=== PATIENT | female | born 1970 | race Caucasian/White ===

== ENCOUNTER 2024-06-27 00:59 | Emergency (ER) | payer BC, SELFPAY ==
[2024-06-27 00:55] VITALS: BP 152/84; PULSE 106; RESP 16; TEMP 36.7; O2SAT 99
--- NOTE | 2024-06-27 01:01 | ED_ITS ---
HPI - Psych General Chief Complaint: Psychiatric Symptoms Stated Complaint: SI STATEMENTS TO PD Time Seen by Provider: 06/27/24 01:00 History of Present Illness HPI Narrative: 54-year-old female presenting to the emergency department via EMS for suicidal ideation statements. Patient was apparently driving erratically to [facility] when she was pulled over by police for routine traffic stop. When she rolled out the window she made suicidal statements to the police officers. EMS called to scene. Family was contacted who states that patient has a history of some psychiatric illness and reportedly previous suicide ideation. Patient does not take any medications and states that she has not seen a doctor in over 25 years. Denies any complaints at this time. She is very tearful in her affect. Denies any alcohol or drugs. In the ambulance Day patient took back her statements of suicidality although documented by PD and EMS patient stated ?I want to kill myself. Denies any homicidality or hallucinations. Related Data Allergies Allergy/AdvReac Type Severity Reaction Status Date / Time morphine Allergy Severe Throat Verified 06/27/24 01:15 swelling, rash Penicillins Allergy Unknown Other Verified 06/27/24 01:15 ULTRAM AND LEVAQUIN Allergy Unknown Other Uncoded 06/27/24 01:15 Review of Systems 2 Review of Systems: As reviewed above [facility] [place] Social History Social History Substance use type: does not use Exam 2 Narrative: GENERAL: Tearful affect, not in any distress, answering questions appropriately x4 HEAD: [Normocephalic, atraumatic.] EYES: [PERRLA and EOMI.] ENT: Nares clear, no rhinorrhea or epistaxis. Mucous membranes moist. NECK: Supple. CHEST: [Clear to auscultation. No respiratory distress.] HEART: [Regular rate and rhythm]. No murmur heard. [Normal peripheral pulses.] ABDOMEN: [Soft, nondistended], [nontender], [No rigidity or guarding] EXTREMITIES: Normal range of motion. [No edema.] SKIN: Warm, dry, no rash. NEURO: [No focal deficits]. Alert and oriented x4 PSYCH: Tearful affect, flat mood. Currently denies suicidal thoughts or ideations. Very pressured and tangential speech, unable to be interrupted. Course Vital Signs Vital signs: Vital Signs Temperature 36.7 C 06/27/24 00:55 Pulse Rate 106 H 06/27/24 00:55 Respiratory Rate 16 06/27/24 00:55 Blood Pressure 152/84 H 06/27/24 00:55 Pulse Oximetry 99 06/27/24 00:55 Oxygen Delivery Room Air 06/27/24 00:55 Temperature 36.7 C 06/27/24 01:22 Pulse Rate 106 H 06/27/24 01:22 Respiratory Rate 16 06/27/24 01:22 Blood Pressure 152/84 H 06/27/24 01:22 Pulse Oximetry 99 06/27/24 01:22 Oxygen Delivery Room Air 06/27/24 00:55 MDM - Psych MDM Narrative Medical decision making narrative: 54-year-old female with reported history of some psychiatric illness and previous suicidal ideation remarks. This collateral formation was reported by family member to PD in EMS. Family member not present for collateral formation at this time and I did not speak with them. Patient presents for suicidal remarks during a traffic stop or she was driving regularly through the town. Denies any drugs or alcohol. She is a tearful affect, not in any distress, she has very pressured speech with tension shell speech and is very difficult to interrupt her to speak myself. Vehemently denies wanting to hurt herself. Normal examination otherwise. Psychiatric workup was ordered this time with clearance laboratory studies, urinalysis, drug screen, COVID swab. Will contact crisis team for evaluation after medically cleared. Laboratory studies show no significant abnormalities. She has a small white count of 12.5, normal hemoglobin, normal platelet count. Electrolytes within normal limits, normal renal function, normal glucose, normal hepatic function. Urine drug screen negative, urinalysis has 2+ leukocytes, white blood cells and bacteria, few squamous cells. Will treat her empirically for urinary infection. Negative test. Negative alcohol level. Patient is currently medically cleared for evaluation by Psychiatry. Patient has been evaluated by Psychiatry and she is stable for discharge home at this time. Not a present danger to herself or others, resources provided upon discharge by the crisis team. Medical Records Attestation: I reviewed the patient's medical records. Lab Data Attestation: I reviewed the patient's lab results. 06/27/24 01:16 06/27/24 01:16 Labs: Lab Results 06/27/24 06/27/24 06/27/24 Range/Units 01:16 01:23 01:55 WBC 12.5 H (4.5-10.0) K/mm3 RBC 4.17 L (4.2-5.4) M/mm3 Hgb 12.3 (12.0-15.0) g/dL Hct 36.0 L (37.0-47.0) % MCV 86.3 (80-100) fl MCH 29.5 (26-34) pg MCHC 34.2 (32-36) g/dl RDW 14.0 (11.5-14.5) % Plt Count 315 (150-375) k/mm3 MPV 9.6 (7.4-10.4) fl Immature Gran % (Auto) 0.3 (0-0.5) % Neut % (Auto) 54.8 (45.5-73.1) % Lymph % (Auto) 35.2 (18.3-44.2) % [place] % (Auto) 5.6 (2.6-8.5) % Eos % (Auto) 3.5 (0-4.4) % Baso % (Auto) 0.6 (0.2-1.2) % Lymph # (Auto) 4.38 H (0.9-3.2) K/mm3 [place] # (Auto) 0.7 H (0.1-0.6) K/mm3 Eos # (Auto) 0.4 H (0-0.3) K/mm3 Baso # (Auto) 0.1 (0.0-0.1) K/mm3 Abs Immat Gran (auto) 0.04 H (0.00-0.031) K/mm3 Absolute Neuts (auto) 6.8 H (1.3-6.7) K/mm3 Absolute Nucleated RBC 0.000 (0.0-0.012) K/mm3 Nucleated RBC % 0.0 (0.0-0.2) % Sodium 140 (137-145) mmol/L Potassium 3.6 (3.4-5.0) mmol/L Chloride 104 (98-107) mmol/L Carbon Dioxide 21 L (22-30) mmol/L Anion Gap 15 H (4-12) mmol/L BUN 16 (7-17) mg/dL Creatinine 0.91 (0.7-1.0) mg/dL Estim Creat Clear Calc 69 ml/min Estimated GFR > 60 (59 - ) Glucose 150 H (65-110) mg/dL Calcium 9.2 (8.4-10.2) mg/dL Total Bilirubin 0.5 (0.2-1.3) mg/dL AST 23 (14-36) U/L ALT 18 (6-35) U/L Alkaline Phosphatase 111 (38-126) U/L Total Protein 8.0 (6.3-8.2) g/dL Albumin 4.6 (3.5-5.1) g/dL TSH (Reflex) 4.980 H (0.465-4.68) uIU/mL Free T4 1.08 (0.78-2.19) ng/dL Total T3 1.34 (0.97-1.69) NG/ML Urine Color Yellow (Yellow) Urine Appearance Cloudy H (Clear) Urine pH 5.0 (5.0-9.0) Ur Specific [place] 1.028 (1.001-1.035) Urine Protein 1+ H (Negative) mg/dL Urine Glucose (UA) Negative (Negative) mg/dL Urine Ketones Trace H (Negative) mg/dL Ur Blood (Man) Negative (Negative) Urine Nitrate Negative (Negative) Urine Bilirubin Negative (Negative) Urine Urobilinogen 1.0 (<2.0) mg/dL Add Ur Microanalysis Reviewed Leukocyte Esterase Rfl 2+ H (Negative) GUILLERMINA/UL Urine RBC 0-2 (0-2) /hpf Urine WBC 21-50 H (0-3) /hpf Ur Squamous Epith Cells Few (Few) /hpf Urine Bacteria 2+ H /hpf Urine Casts 6-10 Hyaline Casts Present (None) /lpf POC Urine HCG, Qual Negative (Negative) Urine Opiates Screen Negative (Negative) Urine Methadone Screen Negative (Negative) Ur Barbiturates Screen Negative (Negative) Ur Phencyclidine Scrn Negative (Negative) Ur Amphetamine Screen Negative (Negative) U Benzodiazepines Scrn Negative (Negative) Urine Cocaine Screen Negative (Negative) U Cannabinoids Screen Negative (Negative) Ethyl Alcohol < 10 (<10) mg/dL Influenza A (RT-PCR) Negative (Negative) Influenza B (RT-PCR) Negative (Negative) SARS-CoV-2 RNA (RT-PCR) Negative (Negative) Discharge Plan Discharge Clinical Impression: Depression with suicidal ideation, Anxiety Patient Disposition: Home, Self-Care Condition: Stable Instructions: Antibiotic Form Patient Language: Bulgarian Follow-up/Referrals: Jaspal Saez MD [Primary Care Provider] - Time of Disposition: 04:34
--- OUTSIDE RECORDS SUMMARY | 2024-06-27 01:11 | XMS_ITS | Clinical Summary ---
Author Organization [facility] Address [address] [place] [id number] Care Team Providers Care Client Relations Specialist Name Role Phone Unavailable Primary Care Provider Unavailabl e Social History Tobacco Use Types Packs/Day Years Used Date Smoking Tobacco: Never Assessed Comments Unknown Sex and Gender Information Value Date Recorded Sex Assigned at Not on file Legal Sex Female 5:54 PM CDT Gender Identity Not on file Sexual Orientation Not on file Plan of Treatment Health Maintenance Due Date Last Done Comments Cervical Cancer Screening Pa p Smear (Age 30 to 64) Every 3 Years 1968 Colorectal Cancer Screening Colonoscopy (10 Years) 1968 Annual Physical 02/18/1971 Hepatitis C 02/18/1986 DTaP, Tdap and Td Vaccines ( 1 - Tdap) 02/18/1987 Hepatitis B Vaccines (1 of 3 - 19+ 3-dose series) 02/18/1987 Cervical Cancer Screening Pa p with HPV Testing (Age 30 to 64) Every 5 Years 02/18/1998 Cervical Cancer Screening with HPV 02/18/1998 Mammogram Screening 2008 Zoster Vaccines (1 of 2) 02/18/2018 COVID-19 Vaccine (2023-2 5 season) 2023 Influenza Adult (#1) 2023 Meningococcal B Vaccine Aged Out No l onger eligible based on patient's age to complete this topic Meningococcal Vaccine Aged Out No wolf vijay eligible based on patient's age to complete this topic Pneumococcal Vaccine: Pediat rics (0 to 5 Years) and At-Risk Patients (6 to 64 Years) Aged Out No longer eligible b ased on patient's age to complete this topic RSV Immunizations Under 20 Months Aged Out No longer eligible based on patient's age to complete this topic
[2024-06-27 01:22] VITALS: BP 152/84; PULSE 106; RESP 16; TEMP 36.7; O2SAT 99
[2024-06-27 01:31] LABS: Basophils Absolute Auto 0.1 K/mm3 (0.0-0.1); Basophils Percent Auto 0.6 % (0.2-1.2); Eosinophils Absolute Auto 0.4 K/mm3 (0-0.3); Eosinophils Percent Auto 3.5 % (0-4.4); Hemoglobin 12.3 g/dL (12.0-15.0); Immature Granulocyte Absolute 0.04 K/mm3 (0.00-0.031); Immature Granulocyte Percent A 0.3 % (0-0.5); Lymphocytes Absolute Auto 4.38 K/mm3 (0.9-3.2); Lymphocytes Percent Auto 35.2 % (18.3-44.2); Mean Corpuscular HGB Conc 34.2 g/dl (32-36); Mean Corpuscular Hemoglobin 29.5 pg (26-34); Mean Corpuscular Volume 86.3 fl (80-100); Mean Platelet Volume 9.6 fl (7.4-10.4); Monocytes Absolute Auto 0.7 K/mm3 (0.1-0.6); Monocytes Percent Auto 5.6 % (2.6-8.5); Neutrophils Absolute Auto 6.8 K/mm3 (1.3-6.7); Neutrophils Percent Auto 54.8 % (45.5-73.1); Platelet Count Result 315 k/mm3 (150-375); Red Blood Count 4.17 M/mm3 (4.2-5.4); White Blood Count 12.5 K/mm3 (4.5-10.0)
[2024-06-27 01:40] LABS: Ethanol < 10 mg/dL (<10)
[2024-06-27 01:46] LABS: Amphetamine Screen Urine Negative (Negative); Barbiturate Screen Urine Negative (Negative); Benzodiazepines Screen Urine Negative (Negative); Cannabinoid Screen Urine Negative (Negative); Cocaine Screen Urine Negative (Negative); Methadone Screen Urine Negative (Negative); Opiate Screen Urine Negative (Negative); Phencyclidine Screen Urine Negative (Negative)
[2024-06-27 01:47] LABS: Add Urine Microscopic? YES; Appearance Urine Cloudy (Clear); Bacteria Urine 2+ /hpf; Bilirubin Urine Negative (Negative); Blood Urine Negative (Negative); Color Urine Yellow (Yellow); Glucose Urine UA Negative (Negative); Hyaline Casts Urine Present /lpf; Ketones Urine Trace mg/dL (Negative); Leukocyte Esterase Ur 2+ LEU/UL (Negative); Need Manual Microscopic Reviewed; Nitrate Urine Negative (Negative); Protein Urine 1+ mg/dL (Negative); RBC Urine 0-2 /hpf (0-2); Specific Grav Ur 1.028 (1.001-1.035); Squamous Epithelial Cell Urine Few /hpf (Few); WBC Urine 21-50 /hpf (0-3)
[2024-06-27 01:52] LABS: Alanine Aminotransferase 18 U/L (6-35); Albumin Level 4.6 g/dL (3.5-5.1); Alkaline Phosphatase 111 U/L (38-126); Anion Gap 15 mmol/L (4-12); Aspartate Amino Transferase 23 U/L (14-36); Bilirubin,Total 0.5 mg/dL (0.2-1.3); Blood Urea Nitrogen 16 mg/dL (7-17); Calcium 9.2 mg/dL (8.4-10.2); Carbon Dioxide 21 mmol/L (22-30); Chloride 104 mmol/L (98-107); Estimated CRCL calculation 69 ml/min; Estimated Glomerular Filt Rate > 60; Glucose 150 mg/dL (65-110); Potassium 3.6 mmol/L (3.4-5.0); Sodium 140 mmol/L (137-145)
[2024-06-27 01:57] LABS: BEDSIDEPREGUCG Negative (Negative)
[2024-06-27 02:07] LABS: Influenza A QL RT-PCR Negative (Negative); Influenza B QL RT-PCR Negative (Negative); SARS-CoV-2 RNA PCR Negative (Negative)
--- NOTE | 2024-06-27 02:38 | PC.NURSE ---
Patient refused abx stating No, I do not take any medications. I'm fine. EDP notified.
[2024-06-27 03:38] LABS: Free T4 Free Thyroxine Reflex 1.08 ng/dL (0.78-2.19)
[2024-06-27 04:19] LABS: Total Triiodothyronine (T3) 1.34 NG/ML (0.97-1.69)
[2024-06-27 05:33] VITALS: BP 142/84; PULSE 97; RESP 15; O2SAT 100
== END 2024-06-27 05:34 | disposition home or self-care (01) ==
PROVIDERS: Emergency Provider Student in an Organized Health Care Education/Training Program; PCP Emergency Medicine
DX: F32.A Depression, unspecified (principal); F41.9 Anxiety disorder, unspecified; R45.851 Suicidal ideations; Z20.822 Contact with and (suspected) exposure to COVID-19
CPT/HCPCS: 36415; 80053; 80307; 81001; 81025; 82077; 84439; 84443; 84480; 85025; 87086; 87636; 99284